=== PATIENT | female | born 1995 | race Caucasian/White ===

== ENCOUNTER 2016-10-03 18:03 | Emergency (ER) | payer BC ==
[2016-10-03 19:00] LABS: ABSOLUTE NEUTROPHIL COUNT 6.1 K/mm3 (1.8-7.7); BASO # 0.1 K/mm3 (0.0-0.2); BASO % 0.7 % (0.2-1.0); EOS # 0.6 (0.0-0.5); EOS % 5.3 % (0.9-2.9); HEMATOCRIT 39.4 % (37.0-47.0); HEMOGLOBIN 12.9 gm/l (12.0-16.0); IMM NEUT # 0.1 K/mm3 (0-0.2); IMM NEUT% 0.4 % (0-1); LYMPH # 4.5 (1.0-4.8); LYMPH % 37.4 % (15-45); MEAN CELL VOLUME 89.3 fl (81.0-99.0); MEAN CORPUSCULAR HEMOGLOBIN 29.3 pg (27.0-31.0); MEAN CORPUSCULAR HGB CONC 32.7 g/dl (33.0-37.0); MEAN PLATELET VOLUME 10.9 fl (7.4-10.4); MONO # 0.8 (0.0-0.8); MONO % 6.3 % (4-12); NEUT % 49.9 % (43-75); PLATELET COUNT 286 K/mm3 (130-400); RED CELL DISTRIBUTION WIDTH 13.2 % (11.5-14.5)
[2016-10-03] MEDS ORDERED: ONDANSETRON 4 MG/2ML 2 ML VIAL ONE (19:02)
[2016-10-03] MEDS ORDERED: MORPHINE SULFATE 4 MG/ML SYRINGE ONE (19:02)
[2016-10-03 19:07] LABS: URINE BILIRUBIN NEGATIVE (NEGATIVE); URINE BLOOD 3+ (NEGATIVE); URINE GLUCOSE (UA) NEGATIVE (NEGATIVE); URINE LEUKOCYTE ESTERASE TRACE (NEGATIVE); URINE NITRITE NEGATIVE (NEGATIVE); URINE PROTEIN NEGATIVE (NEGATIVE); URINE UROBILINOGEN NORMAL (0-1 mg/dl)
[2016-10-03 19:08] LABS: HCG,QUALITATIVE URINE NEGATIVE
[2016-10-03 19:09] LABS: URINE APPEARANCE SL CLOUDY; URINE COLOR YELLOW
[2016-10-03 19:17] LABS: ALB/GLOB RATIO 1.3 (>1.0); ALBUMIN 3.7 gm/dL (3.5-5.7); CALCIUM 8.9 mg/dL (8.6-10.3)
[2016-10-03 19:41] LABS: URINE EPITHELIAL CELLS 0-2 /hpf; URINE RBC 0-2 /hpf; URINE WBC 0-2 /hpf
[2016-10-03 19:42] LABS: URINE AMORPHOUS SEDIMENT MODERATE; URINE BACTERIA 1+
--- NOTE | 2016-10-03 20:00 | US ---
PELVIC COMPLETE, TRANSVAGINAL ECHOGRAPHY COMPARISON: None. HISTORY: Pelvic pain and spotting since 09/24/2016. The patient has a history of polycystic ovary syndrome. Technique: Transabdominal and transvaginal. FINDINGS: Uterus: 7.7 x 3.8 x 5.2 cm. No mass. Endometrium: Normal thickness 10 mm.. Right ovary: 2.7 x 1.5 x 2.7 cm. Volume 5.5 mL. Normal blood flow. Left ovary: 3.3 x 1.9 x 2.4 cm. Volume 7.9 mL. Normal blood flow. Multiple peripheral cysts.. Adnexa mass: None Fluid: None. IMPRESSION: 1. The cause for pelvic pain and spotting is not identified. Normal thickness endometrium. Normal uterus. The ovaries are not enlarged, although there are multiple peripheral cysts in the left ovary. No adnexal mass. The report was sent to the emergency department electronic medical record system, 10/03/2016 at 20:00
[2016-10-03] MEDS ORDERED: KETOROLAC TROMETHAMINE 30 MG/ML 1 ML VIAL ONE (20:29)
== END 2016-10-03 20:47 | disposition home or self-care (01) ==
LOC: ED 18:03
DX: R10.9 Unspecified abdominal pain (principal); E28.2 Polycystic ovarian syndrome; R11.0 Nausea
CPT/HCPCS: 81025; 85025; 87086; 80053; 81001; 76856; 76830; 96375 ×2; 99283 ×2; 96374; J2270; J1885; J2405